=== PATIENT | male | born 1965 | race Caucasian/White ===

== ENCOUNTER 2017-11-07 11:35 | Observation (INO) | payer OTHER ==
[2017-11-07] MEDS ORDERED: Sodium Chloride 0.9% 500 ML IV SCH (11:45)
[2017-11-07] MEDS ORDERED: Aspirin 81 MG Tab.Chew PO ONE (11:45)
--- NOTE | 2017-11-07 11:46 | EDM.PDOC ---
ED HPI GENERAL MEDICAL PROBLEM - General Chief Complaint: Chest Pain Stated Complaint: CHEST PAIN Time Seen by Provider: 11/07/17 11:46 Source of Information: Reports: Patient - History of Present Illness INITIAL COMMENTS - FREE TEXT/NARRATIVE: HISTORY AND PHYSICAL: History of present illness: Patient presents with chest pain 3-4 out of 10 nonradiating pressure, today there is a pleuritic component. A sharp pain with deep inspiration however over the last couple of weeks he has noted some exertional left arm pain no shortness of breath or diaphoresis No fever nausea vomiting chills sweats no headache dizziness or palpitation no bowel or urine symptoms History of hypertension and dyslipidemia [] Review of systems: As per history of present illness and below otherwise all systems reviewed and negative. Past medical history: As per history of present illness and as reviewed below otherwise noncontributory. Surgical history: As per history of present illness and as reviewed below otherwise noncontributory. Social history: No reported history of drug or alcohol abuse. Family history: As per history of present illness and as reviewed below otherwise noncontributory. Physical exam: HEENT: Atraumatic, normocephalic, pupils reactive, negative for conjunctival pallor or scleral icterus, mucous membranes moist, throat clear, neck supple, nontender, trachea midline. Lungs: Clear to auscultation, breath sounds equal bilaterally, chest nontender. Heart: S1S2, regular, negative for clicks, rubs, or JVD. Abdomen: Soft, nondistended, nontender. Negative for masses or hepatosplenomegaly. Negative for costovertebral tenderness. Pelvis: Stable nontender. Genitourinary: Deferred. Rectal: Deferred. Extremities: Atraumatic, negative for cords or calf pain. Neurovascular unremarkable. Neuro: Awake, alert, oriented. Cranial nerves II through XII unremarkable. Cerebellum unremarkable. Motor and sensory unremarkable throughout. Exam nonfocal. Diagnostics: [CBC CMP troponin d-dimer EKG Chest 1 view ] Therapeutics: [Normal saline 500 mL bolus Aspirin 324 mg chewable Nitroglycerin sublingual when necessary 30 ] Impression: Atypical chest pain Definitive disposition and diagnosis as appropriate pending reevaluation and review of above. Right Chest Pain Score (Numeric/FACES): 8 - Related Data Allergies Allergy/AdvReac Type Severity Reaction Status Date / Time No Known Allergies Allergy Verified 11/07/17 11:42 Home Meds: Home Meds Famotidine [Heartburn Prevention] 20 mg PO BEDTIME 11/07/17 [History] Furosemide 20 mg PO ASDIRECTED 11/07/17 [History] Metoprolol Succinate [Toprol XL 50mg] 25 mg PO DAILY 11/07/17 [History] Topiramate 25 mg PO DAILY 11/07/17 [History] atorvaSTATin [Lipitor] 11/07/17 [History] ED ROS GENERAL - Review of Systems Review Of Systems: ROS reveals no pertinent complaints other than HPI. ED EXAM, GENERAL - Physical Exam Exam: See Below Course - Vital Signs Last Recorded V/S: Last Vital Signs Temp 98.6 F 11/07/17 11:39 Pulse 71 11/07/17 11:39 Resp 20 11/07/17 11:39 BP 124/87 11/07/17 12:38 Pulse Ox 97 11/07/17 11:39 - Orders/Labs/Meds Orders: Active Orders 24 hr Category Date Time Status EKG Documentation Completion [RC] STAT Care 11/07/17 11:45 Active UA W/MICROSCOPIC [URIN] Stat Lab 11/07/17 11:45 Ordered Nitroglycerin [Nitrostat] Med 11/07/17 12:21 Active 0.4 mg SL Q5M PRN Sodium Chloride 0.9% [Normal Saline] 500 ml Med 11/07/17 11:45 Active IV STAT Medication Orders Sodium Chloride (Normal Saline) 500 mls @ 999 mls/hr IV STAT SANDIP Last Admin: 11/07/17 12:15 Dose: 999 mls/hr Nitroglycerin (Nitrostat) 0.4 mg SL Q5M PRN PRN Reason: Chest Pain Last Admin: 11/07/17 12:38 Dose: 0.4 mg Admin: 11/07/17 12:33 Dose: 0.4 mg Labs: Laboratory Tests 11/07/17 11/07/17 11/07/17 Range/Units 11:55 11:55 12:51 WBC 7.25 (4.0-11.0) K/uL RBC 4.81 (4.50-5.90) M/uL Hgb 15.2 (13.0-17.0) g/dL Hct 44.5 (38.0-50.0) % MCV 92.5 (80.0-98.0) fL MCH 31.6 (27.0-32.0) pg MCHC 34.2 (31.0-37.0) g/dL RDW Std Deviation 45.2 (28.0-62.0) fl RDW Coeff of Willy 13 (11.0-15.0) % Plt Count 173 (150-400) K/uL MPV 10.60 (7.40-12.00) fL Neut % (Auto) 59.0 (48.0-80.0) % Lymph % (Auto) 33.4 (16.0-40.0) % Jay % (Auto) 5.5 (0.0-15.0) % Eos % (Auto) 1.7 (0.0-7.0) % Baso % (Auto) 0.4 (0.0-1.5) % Neut # (Auto) 4.3 (1.4-5.7) K/uL Lymph # (Auto) 2.4 (0.6-2.4) K/uL Jay # (Auto) 0.4 (0.0-0.8) K/uL Eos # (Auto) 0.1 (0.0-0.7) K/uL Baso # (Auto) 0.0 (0.0-0.1) K/uL Nucleated RBC % 0.0 /100WBC Nucleated RBCs # 0 K/uL D-Dimer, Quantitative 0.52 (0.0-0.52) mg/LFEU Sodium 140 (136-146) mmol/L Potassium 3.9 (3.5-5.1) mmol/L Chloride 108 (98-110) mmol/L Carbon Dioxide 23 (21-31) mmol/L BUN 23 (6.0-23.0) mg/dL Creatinine 1.1 (0.6-1.5) mg/dL Est Cr Clr Drug Dosing 84.26 mL/min Estimated GFR (MDRD) > 60.0 ml/min Glucose 105 (60-110) mg/dL Calcium 9.1 (8.8-10.8) mg/dL Total Bilirubin 1.1 (0.1-1.5) mg/dL AST 20 (5-40) IU/L ALT 38 (8-54) IU/L Alkaline Phosphatase 98 (40-150) Troponin I < 0.10 (0.0-0.29) NG/ML Total Protein 7.2 (6.0-8.0) g/dL Albumin 4.0 (3.5-5.0) g/dL Globulin 3.2 (2.0-3.5) g/dL Albumin/Globulin Ratio 1.3 (1.3-2.8) Lipase 28 (7-80) U/L Meds: Medications Generic Name Dose Route Start Last Admin Trade Name Freq PRN Reason Stop Dose Admin Sodium Chloride 500 mls @ 999 mls/hr 11/07/17 11:45 11/07/17 12:15 Normal Saline IV 999 mls/hr STAT SANDIP Administration Nitroglycerin 0.4 mg 11/07/17 12:21 11/07/17 12:38 Nitrostat SL 0.4 mg Q5M PRN Administration Chest Pain Discontinued Medications Generic Name Dose Route Start Last Admin Trade Name Freq PRN Reason Stop Dose Admin Aspirin 324 mg 11/07/17 11:45 11/07/17 12:15 Aspirin PO 11/07/17 11:46 324 mg ONETIME ONE Administration Departure - Departure Time of Disposition: 14:09 Disposition: Refer to Observation Condition: Fair Clinical Impression: Atypical chest pain - Discharge Information Referrals: Bayron Guevara MD [Primary Care Provider] - Forms: ED Department Discharge - My Orders Last 24 Hours: My Active Orders 11/07/17 11:45 EKG Documentation Completion [RC] STAT UA W/MICROSCOPIC [URIN] Stat Sodium Chloride 0.9% [Normal Saline] 500 ml IV STAT 11/07/17 12:21 Nitroglycerin [Nitrostat] 0.4 mg SL Q5M PRN - Assessment/Plan Last 24 Hours: My Active Orders 11/07/17 11:45 EKG Documentation Completion [RC] STAT UA W/MICROSCOPIC [URIN] Stat Sodium Chloride 0.9% [Normal Saline] 500 ml IV STAT 11/07/17 12:21 Nitroglycerin [Nitrostat] 0.4 mg SL Q5M PRN
[2017-11-07 12:28] LABS: CHLORIDE,CL 108 mmol/L (98-110); SODIUM,NA 140 mmol/L (136-146)
[2017-11-07] MEDS: Nitroglycerin 0.4 MG Tab.SL SL PRN ×2 (12:33→12:38)
--- NOTE | 2017-11-07 12:36 | CR ---
EXAMINATION: Portable chest radiograph. HISTORY: Pain. FINDINGS: The trachea is midline. The cardiomediastinal silhouette is within normal limits. No pulmonary infilt rates, effusions or pneumothorax. Osseous structures appear unremarkable. IMPRESSION: No acute cardiopulmonary process.
--- NOTE | 2017-11-07 14:43 | PCM.HP ---
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 He also reports this pain is 8/10 currently and significantly worsens with deep inspiration. He denies SOB with this event, but more like he was unable to catch his breath because of the pain induced by breathing. No diaphoresis or lightheadedness. This pain initially started at 10 am this morning and reminded him of his PE so much he felt he should be evaluated. He denies recent long car rides or plane rides and no injuries to legs or chest. 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 He reports the pain improved somewhat initially with Nitro x2, but is now back, mainly with inspiration.He denies tobacco use, rare alcohol use and no recreational drug use. He has never had an AK or stress testing and denies DM. In the ED labwork WNL. Initial troponin negative. EKG SR with no signs of acute ischemia. CXR negative. D Dimer 0.52. he was treated with Nitro x 2 and ASA. He will be admitted observation for atypical chest pain rule out ACS. Right Chest Pain Score (Numeric/FACES): 8 - Related Data Allergies/Adverse Reactions: Allergies Allergy/AdvReac Type Severity Reaction Status Date / Time No Known Allergies Allergy Verified 11/07/17 11:42 Home Medications: Home Meds Famotidine [Heartburn Prevention] 20 mg PO BEDTIME 11/07/17 [History] Furosemide 20 mg PO ASDIRECTED 11/07/17 [History] Metoprolol Succinate [Toprol XL 50mg] 25 mg PO DAILY 11/07/17 [History] Topiramate 25 mg PO DAILY 11/07/17 [History] atorvaSTATin [Lipitor] 11/07/17 [History] Past Medical History HEENT History: Reports: Hard of Hearing (hearing aids bilaterally, obtained last year.) Cardiovascular History: Reports: Blood Clots/VTE/DVT, High Cholesterol, Hypertension. Denies: Afib, CAD, Heart Failure, AK, Stents Respiratory History: Reports: PE (8-9 years ago, was on anticoagulation for 6 months, none since.). Denies: Asthma, COPD Gastrointestinal History: Reports: GERD. Denies: GI Bleed, Inflammatory Bowel Disease Genitourinary History: Reports: None. Denies: Acute Renal Failure, Chronic Renal Insuffiency Musculoskeletal History: Reports: None Neurological History: Reports: None. Denies: CVA, TIA Endocrine/Metabolic History: Reports: Obesity/BMI 30+. Denies: Diabetes, Type II, Hypothyroidism Hematologic History: Reports: None - Infectious Disease History Infectious Disease History: Reports: Chicken Pox, Measles - Past Surgical History GI Surgical History: Reports: Cholecystectomy, Hernia, Inguinal Neurological Surgical History: Reports: Other (See Below) (brain tumor removed at age 9) Musculoskeletal Surgical History: Reports: Arthroscopic Knee Social & Family History - Family History Family Medical History: Noncontributory - Tobacco Use Smoking Status *Q: Never Smoker - Alcohol Use Alcohol Use Frequency: Rarely - Recreational Drug Use Recreational Drug Use: No - Living Situation & Occupation Living situation: Reports: Occupation: Employed H&P Review of Systems - Review of Systems: Review Of Systems: See Below General: Denies: Fever, Chills, Malaise, Weakness Pulmonary: Reports: Pleuritic Chest Pain. Denies: Shortness of Breath, Wheezing , Cough, Sputum Cardiovascular: Reports: Chest Pain. Denies: Palpitations, Orthopnea, Edema, Lightheadedness, Syncope Gastrointestinal: Reports: No Symptoms. Denies: Abdominal Pain, Black Stool, Bloody Stool, Nausea, Vomiting Genitourinary: Reports: No Symptoms. Denies: Dysuria, Frequency, Burning Musculoskeletal: Denies: Neck Pain Skin: Reports: No Symptoms Psychiatric: Reports: No Symptoms. Denies: Confusion Neurological: Reports: No Symptoms. Denies: Confusion Hematologic/Lymphatic: Reports: No Symptoms. Denies: Anemia Immunologic: Reports: No Symptoms. Denies: Anaphylaxis Exam - Exam Exam: See Below - Vital Signs Vital Signs: Last Vital Signs Temp 98.6 F 11/07/17 11:39 Pulse 71 11/07/17 11:39 Resp 20 11/07/17 11:39 BP 124/87 11/07/17 12:38 Pulse Ox 97 11/07/17 11:39 Weight: 120.6 kg - Exam Quality Assessment: DVT Prophylaxis. No: Supplemental Oxygen General: Alert, Oriented, Cooperative HEENT: Conjunctiva Clear, Mucosa Moist & [place], Pupils Reactive Neck: Supple, Trachea Midline Lungs: Clear to Auscultation, Normal Respiratory Effort Cardiovascular: Regular Rate, Regular Rhythm, Normal S1, Normal S2. No: Irregular Rhythm, Systolic Murmur GI/Abdominal Exam: Normal Bowel Sounds, Soft, Non-Tender, No Organomegaly, No Distention, No Abnormal Bruit, No Mass, Pelvis Stable Extremities: Normal Inspection, Normal Range of Motion, Non-Tender, No Pedal Edema, Normal Capillary Refill Neuro Extensive - Mental Status: Alert, Oriented x3, Normal Mood/Affect, Normal Cognition Psychiatric: Alert, Normal Affect, Normal Mood - Patient Data Lab Results Last 24 hrs: Laboratory Results - last 24 hr 11/07/17 11/07/17 11/07/17 Range/Units 11:55 11:55 12:51 WBC 7.25 (4.0-11.0) K/uL RBC 4.81 (4.50-5.90) M/uL Hgb 15.2 (13.0-17.0) g/dL Hct 44.5 (38.0-50.0) % MCV 92.5 (80.0-98.0) fL MCH 31.6 (27.0-32.0) pg MCHC 34.2 (31.0-37.0) g/dL RDW Std Deviation 45.2 (28.0-62.0) fl RDW Coeff of Willy 13 (11.0-15.0) % Plt Count 173 (150-400) K/uL MPV 10.60 (7.40-12.00) fL Neut % (Auto) 59.0 (48.0-80.0) % Lymph % (Auto) 33.4 (16.0-40.0) % Scott % (Auto) 5.5 (0.0-15.0) % Eos % (Auto) 1.7 (0.0-7.0) % Baso % (Auto) 0.4 (0.0-1.5) % Neut # (Auto) 4.3 (1.4-5.7) K/uL Lymph # (Auto) 2.4 (0.6-2.4) K/uL Scott # (Auto) 0.4 (0.0-0.8) K/uL Eos # (Auto) 0.1 (0.0-0.7) K/uL Baso # (Auto) 0.0 (0.0-0.1) K/uL Nucleated RBC % 0.0 /100WBC Nucleated RBCs # 0 K/uL D-Dimer, Quantitative 0.52 (0.0-0.52) mg/LFEU Sodium 140 (136-146) mmol/L Potassium 3.9 (3.5-5.1) mmol/L Chloride 108 (98-110) mmol/L Carbon Dioxide 23 (21-31) mmol/L BUN 23 (6.0-23.0) mg/dL Creatinine 1.1 (0.6-1.5) mg/dL Est Cr Clr Drug Dosing 84.26 mL/min Estimated GFR (MDRD) > 60.0 ml/min Glucose 105 (60-110) mg/dL Calcium 9.1 (8.8-10.8) mg/dL Total Bilirubin 1.1 (0.1-1.5) mg/dL AST 20 (5-40) IU/L ALT 38 (8-54) IU/L Alkaline Phosphatase 98 (40-150) Troponin I < 0.10 (0.0-0.29) NG/ML Total Protein 7.2 (6.0-8.0) g/dL Albumin 4.0 (3.5-5.0) g/dL Globulin 3.2 (2.0-3.5) g/dL Albumin/Globulin Ratio 1.3 (1.3-2.8) Lipase 28 (7-80) U/L Result Diagrams: 11/07/17 11:55 11/07/17 11:55 EKG INTERPRETATION EKG Date: 11/07/17 Rhythm: NSR P-Wave: Present QRS: Normal ST-T: Normal QT: Normal *Q Meaningful Use (ADM) - VTE *Q VTE Criteria *Q: - Stroke *Q Stroke Criteria *Q: - AMI *Q AMI Criteria *Q: - Problem List (1) Atypical chest pain SNOMED Code(s): 681164982 ICD Code: R07.89 - OTHER CHEST PAIN Status: Acute Current Visit: Yes (2) HTN (hypertension) SNOMED Code(s): 30788572 ICD Code: I10 - ESSENTIAL (PRIMARY) HYPERTENSION Status: Chronic Current Visit: Yes Qualifiers: Hypertension type: essential hypertension Qualified Code(s): I10 - Essential (primary) hypertension (3) Dyslipidemia SNOMED Code(s): 063520218 ICD Code: E78.5 - HYPERLIPIDEMIA, UNSPECIFIED Status: Chronic Current Visit: Yes (4) Hx pulmonary embolism SNOMED Code(s): 223823193 ICD Code: Z86.711 - PERSONAL HISTORY OF PULMONARY EMBOLISM Status: Chronic Current Visit: Yes (5) Hx of deep venous thrombosis SNOMED Code(s): 115470326 ICD Code: Z86.718 - PERSONAL HISTORY OF OTHER VENOUS THROMBOSIS AND EMBOLISM Status: Chronic Current Visit: Yes (6) History of brain tumor SNOMED Code(s): 739548217, 867987962 ICD Code: Z87.898 - PERSONAL HISTORY OF OTHER SPECIFIED CONDITIONS Status: Chronic Current Visit: Yes (7) Hard of hearing SNOMED Code(s): 44727775 ICD Code: H91.90 - UNSPECIFIED HEARING LOSS, UNSPECIFIED EAR Status: Chronic Current Visit: Yes Qualifiers: Hearing loss type: unspecified Laterality: bilateral Qualified Code(s): H91.93 - Unspecified hearing loss, bilateral Problem List Initiated/Reviewed/Updated: Yes Orders Last 24hrs: Active Orders 24 hr Category Date Time Status Patient Status [ADT] Stat ADT 11/07/17 14:09 Active EKG Documentation Completion [RC] STAT Care 11/07/17 11:45 Active UA W/MICROSCOPIC [URIN] Stat Lab 11/07/17 11:45 Ordered Nitroglycerin [Nitrostat] Med 11/07/17 12:21 Active 0.4 mg SL Q5M PRN Sodium Chloride 0.9% [Normal Saline] 500 ml Med 11/07/17 11:45 Active IV STAT Medication Orders Sodium Chloride (Normal Saline) 500 mls @ 999 mls/hr IV STAT SANDIP Last Admin: 11/07/17 12:15 Dose: 999 mls/hr Nitroglycerin (Nitrostat) 0.4 mg SL Q5M PRN PRN Reason: Chest Pain Last Admin: 11/07/17 12:38 Dose: 0.4 mg Admin: 11/07/17 12:33 Dose: 0.4 mg Assessment/Plan Comment:: This 52 year old male admitted with atypical chest pain 1. Atypical chest pain: Will trend troponins, obtain fasting lipid panel and A1c. Monitor on telemetry. Due to hx of PE/DVT, and Well's score of 4.5, will obtain CTA of chest to rule out completely PE. Which patient agrees with this plan of action. Will also schedule outpatient stress test to further evaluate heart due to age and medical history. CTA of chest negative for PE. tiny nodule of left lingula noted, follow up recommended in 12 months. patient aware of these findings 2. HTN: stable, continue home medications 3. Dyslipidemia: Will obtain Lipid panel. Continue statin. VTE prophylaxis: Lovenox. Dispo: 1 day
[2017-11-07] MEDS ORDERED: Iopamidol 755 MG/ML 500 ML Multipack Bottle IVPUSH STA (15:09)
[2017-11-07] MEDS ORDERED: Acetaminophen 325 MG Tab PO PRN (15:36)
[2017-11-07] MEDS ORDERED: Ondansetron 4 MG/2 ML SDV IVPUSH PRN (15:36)
[2017-11-07] MEDS ORDERED: Morphine 2 MG/ML Syringe IVPUSH PRN (15:36)
--- NOTE | 2017-11-07 16:01 | CT ---
EXAMINATION: CTA chest HISTORY: Chest pain COMPARISON: Radiographs dated 11/07/2017 TECHNIQUE: Axial CT images obtained through the chest following the administration of 50 mL of Isovue -370 in the right anterior fossa. Coronal and sagittal reconstructions obtained. FINDINGS: The lungs are clear without focal consolidation. No pleural effusion or pneumothorax. There is a tiny 4 mm nodule in the left lingula. The heart is normal in size without a pericardial effusio n. Mild coronary artery calcifications. The thoracic aorta is normal in caliber. No mediastinal or ax illary lymphadenopathy. Nonpathologically enlarged hilar lymph nodes noted. No suspicious osseous abnormalities identified. Visualized images of the upper abdomen appear normal. IMPRESSION: 1. No acute cardiopulmonary findings. 2. No pulmonary embolus identified. 3. Tiny nodule within the left lingula measuring 4 mm. If the patient has known risk factors consider follow-up imaging in 12 months.
[2017-11-07] MEDS ORDERED: traMADol 50 MG Tab PO PRN (17:52)
[2017-11-07] MEDS ORDERED: Famotidine 20 MG Tab PO SCH (21:00)
--- NOTE | 2017-11-08 08:49 | PCM.DCSUM1 ---
Discharge Summary - Hospital Course Brief History: This 52 year old male with pmh of HTN, dyslipidemia, PE/DVT to L leg 8-9 years ago, and resection of brain tumor at age 9 presented to the ED with complaints of R sided chest pain, which radiates to L chest and arm intermittently. He also reports this pain is 8/10 currently and significantly worsens with deep inspiration. He denies SOB with this event, but more like he was unable to catch his breath because of the pain induced by breathing. No diaphoresis or lightheadedness. This pain initially started at 10 am this morning and reminded him of his PE so much he felt he should be evaluated. He denies recent long car rides or plane rides and no injuries to legs or chest. 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 He reports the pain improved somewhat initially with Nitro x2, but is now back, mainly with inspiration.He denies tobacco use, rare alcohol use and no recreational drug use. He has never had an VT or stress testing and denies DM. In the ED labwork WNL. Initial troponin negative. EKG SR with no signs of acute ischemia. CXR negative. D Dimer 0.52. he was treated with Nitro x 2 and ASA. He will be admitted observation for atypical chest pain rule out ACS. - Discharge Data Discharge Date: 11/08/17 Discharge Disposition: Home, Self-Care 01 Condition: Good - Discharge Diagnosis/Problem(s) (1) Atypical chest pain SNOMED Code(s): 446675821 ICD Code: R07.89 - OTHER CHEST PAIN Status: Acute (2) HTN (hypertension) SNOMED Code(s): 99888239 ICD Code: I10 - ESSENTIAL (PRIMARY) HYPERTENSION Status: Chronic Qualifiers: Hypertension type: essential hypertension Qualified Code(s): I10 - Essential (primary) hypertension (3) Dyslipidemia SNOMED Code(s): 417014333 ICD Code: E78.5 - HYPERLIPIDEMIA, UNSPECIFIED Status: Chronic (4) Hx pulmonary embolism SNOMED Code(s): 557163334 ICD Code: Z86.711 - PERSONAL HISTORY OF PULMONARY EMBOLISM Status: Chronic (5) Hx of deep venous thrombosis SNOMED Code(s): 390800855 ICD Code: Z86.718 - PERSONAL HISTORY OF OTHER VENOUS THROMBOSIS AND EMBOLISM Status: Chronic (6) History of brain tumor SNOMED Code(s): 495887151, 847313704 ICD Code: Z87.898 - PERSONAL HISTORY OF OTHER SPECIFIED CONDITIONS Status: Chronic (7) Hard of hearing SNOMED Code(s): 70124537 ICD Code: H91.90 - UNSPECIFIED HEARING LOSS, UNSPECIFIED EAR Status: Chronic Qualifiers: Hearing loss type: unspecified Laterality: bilateral Qualified Code(s): H91.93 - Unspecified hearing loss, bilateral - Patient Instructions Diet: Heart Healthy Diet Activity: As Tolerated, No Strenuous Activities Showering/Bathing: January Shower Notify Provider of: Fever, Increased Pain, Swelling and Redness, Drainage, Nausea and/or Vomiting - Discharge Plan Prescriptions/Med Rec: Aspirin 81 mg PO DAILY #30 tab.chew Home Medications: Home Meds Famotidine [Heartburn Prevention] 20 mg PO BEDTIME 11/07/17 [History] Furosemide 20 mg PO ASDIRECTED 11/07/17 [History] Metoprolol Succinate [Toprol XL 50mg] 25 mg PO DAILY 11/07/17 [History] Topiramate 25 mg PO DAILY 11/07/17 [History] atorvaSTATin [Lipitor] 11/07/17 [History] Aspirin 81 mg PO DAILY #30 tab.chew 11/08/17 [Rx] Patient Handouts: Nonspecific Chest Pain, [id number], Aspirin, ASA oral tablets Referrals: Bayron Guevara MD [Primary Care Provider] - 11/15/17 3:30 pm - Discharge Summary/Plan Comment DC Time >30 min.: No Discharge Summary/Plan Comment: Discharge Diagnoses: Atypical chest pain- likely musculoskeletal HTN Dyslipidemia Hx PE/DVT Hx brain tumor Don was admitted and monitored overnight, ACS ruled out with three negative troponins and EKG/telemetry showing no signs of acute ischemia. Chest tenderness to palpation on R side continues slightly. But he further explains the pain started after he had a coughing fit from some heartburn the day prior. He is feeling much better and eager for discharge. CT angio of chest was obtained due to Wells score of 4.5, CT angion negative for pulmonary embolism. It did note tiny nodule on Left langula, which should be followed up on in 12 months. Due to unknown family history from adoption and current risk factors, we will arrange him for outpatient stress test. He is to follow up with PCP in 1 week as well. He is to continue all home medications and return to ED or clinic if concerns should arise. - General Info Date of Service: 11/08/17 Admission Dx/Problem (Free Text: Admission Diagnosis/Problem Admission Diagnosis/Problem Atypical chest pain Subjective Update: Doing well this morning, Chest pain 1/10 and feels more muscular today. No concerns. very eager to be discharged home today. - Review of Systems General: Reports: No Symptoms. Denies: Weakness, Fatigue, Malaise HEENT: Reports: No Symptoms. Denies: Rhinitis Pulmonary: Reports: No Symptoms. Denies: Shortness of Breath, Pleuritic Chest Pain, Cough, Sputum Cardiovascular: Reports: No Symptoms. Denies: Chest Pain, Palpitations, Edema, Lightheadedness Gastrointestinal: Reports: No Symptoms. Denies: Abdominal Pain, Nausea, Vomiting Genitourinary: Reports: No Symptoms. Denies: Dysuria, Frequency, Burning Neurological: Denies: No Symptoms, Confusion Psychiatric: Reports: No Symptoms. Denies: Confusion - Patient Data Vitals - Most Recent: Last Vital Signs Temp 99 F 11/08/17 05:00 Pulse 75 11/08/17 05:00 Resp 18 11/08/17 05:00 BP 113/72 11/08/17 05:00 Pulse Ox 95 11/08/17 05:00 Weight - Most Recent: 120.6 kg I&O - Last 24 hours: Intake & Output 11/07/17 11/08/17 11/08/17 22:59 06:59 14:59 Intake Total 300 100 Output Total 500 700 Balance -200 -600 Lab Results - Last 24 hrs: Laboratory Results - last 24 hr 11/07/17 11/08/17 11/08/17 Range/Units 18:00 00:10 05:50 Troponin I < 0.10 < 0.10 (0.0-0.29) NG/ML Urine Color YELLOW Urine Appearance CLEAR Urine pH 7.0 (5.0-8.0) Ur Specific [place] 1.010 (1.001-1.035) Urine Protein NEGATIVE (NEGATIVE) mg/dL Urine Glucose (UA) NEGATIVE (NEGATIVE) mg/dL Urine Ketones NEGATIVE (NEGATIVE) mg/dL Urine Occult Blood NEGATIVE (NEGATIVE) Urine Nitrite NEGATIVE (NEGATIVE) Urine Bilirubin NEGATIVE (NEGATIVE) Urine Urobilinogen 0.2 (<2.0) EU/dL Ur Leukocyte Esterase NEGATIVE (NEGATIVE) Urine RBC 0-1 (0-2/HPF) Urine WBC 0-1 (0-5/HPF) Ur Epithelial Cells RARE (NONE-FEW) Urine Bacteria RARE (NEGATIVE) Med Orders - Current: Current Medications Acetaminophen (Tylenol) 650 mg PO Q4H PRN PRN Reason: Pain (mild 1-3) Aspirin (Aspirin) 81 mg PO DAILY [facility] Famotidine (Pepcid) 20 mg PO BEDTIME SANDIP Last Admin: 11/07/17 21:48 Dose: 20 mg Metoprolol Succinate (Toprol Xl) 25 mg PO DAILY [facility] Morphine Sulfate (Morphine) 2 mg IVPUSH Q2H PRN PRN Reason: Pain (severe 7-10) Stop: 11/08/17 15:38 Nitroglycerin (Nitrostat) 0.4 mg SL Q5M PRN PRN Reason: Chest Pain Last Admin: 11/07/17 12:38 Dose: 0.4 mg Ondansetron HCl (Zofran) 4 mg IVPUSH Q4H PRN PRN Reason: Nausea Topiramate (Topamax) 25 mg PO DAILY [facility] Tramadol HCl (Ultram) 50 mg PO Q6H PRN PRN Reason: Pain Discontinued Medications Aspirin (Aspirin) 324 mg PO ONETIME ONE Stop: 11/07/17 11:46 Last Admin: 11/07/17 12:15 Dose: 324 mg Sodium Chloride (Normal Saline) 500 mls @ 999 mls/hr IV STAT SANDIP Last Admin: 11/07/17 12:15 Dose: 999 mls/hr Iopamidol (Isovue Multipack-370 (76%)) 50 ml IVPUSH ONETIME STA Stop: 11/07/17 15:10 Last Admin: 11/07/17 15:26 Dose: 50 ml - Exam General: Reports: Alert, Oriented, Cooperative, No Acute Distress Neck: Reports: Supple Lungs: Reports: Clear to Auscultation, Normal Respiratory Effort Cardiovascular: Reports: Regular Rate, Regular Rhythm GI/Abdominal Exam: Normal Bowel Sounds, Soft, Non-Tender, No Organomegaly, No Distention, No Abnormal Bruit, No Mass, Pelvis Stable Extremities: Normal Inspection, Normal Range of Motion, Non-Tender, No Pedal Edema, Normal Capillary Refill Wound/Incisions: Reports: Healing Well Neurological: Reports: No New Focal Deficit Psy/Mental Status: Reports: Alert, Normal Affect, Normal Mood *Q Meaningful Use (DIS) - VTE *Q VTE Criteria *Q: - Stroke *Q Stroke Criteria *Q: - AMI *Q AMI Criteria *Q:
[2017-11-08] MEDS ORDERED: Aspirin 81 MG Tab.Chew PO SCH (09:00)
[2017-11-08] MEDS ORDERED: Metoprolol Succinate 25 MG Tab.ER PO SCH (09:00)
[2017-11-08] MEDS ORDERED: Topiramate 50 MG Tab PO SCH (09:00)
== END 2017-11-08 10:30 | disposition home or self-care (01) ==
LOC: MW.ED 11:35 → MW.ICU 15:14
PROVIDERS: ADMIT Family Medicine; ATTEND Family Medicine
DX: R07.89 Other chest pain (principal); I10 Essential (primary) hypertension; E78.5 Hyperlipidemia, unspecified; H91.93 Unspecified hearing loss, bilateral; K21.9 Gastro-esophageal reflux disease without esophagitis; E66.9 Obesity, unspecified; Z68.30 Body mass index [BMI] 30.0-30.9, adult; Z86.718 Personal history of other venous thrombosis and embolism; Z86.711 Personal history of pulmonary embolism; Z87.898 Personal history of other specified conditions; Z79.899 Other long term (current) drug therapy; Z79.82 Long term (current) use of aspirin
CPT/HCPCS: 36415; 71045; 71275; 80053; 80061; 81001; 83036; 83690; 84484; 85025; 85379; 99285; A9270; G0378; J7040; Q9967; 99284